=== PATIENT | female | born 1940 | race Caucasian/White ===

== ENCOUNTER 2017-01-04 08:31 | Day surgery (SDC) | payer MEDICARE, MEDICAID ==
[2016-12-31 12:55] VITALS: BMI 20.5
[2017-01-04 09:36] VITALS: RESP 18; TEMP 97.1
[2017-01-04 10:05] LABS: INR 1.2
[2017-01-04] MEDS ORDERED: Midazolam 2 MG/2 ML VIAL ONE (11:25)
--- NOTE | 2017-01-04 11:44 | CP.SDSHP ---
Same Day Surgery H & P - History Proposed Procedure: US guided liver biopsy Pre-Op Diagnosis: Cirrhosis - Allergies Allergies: Allergies No Known Allergies Allergy (Verified 09/11/16 18:23) - Physical Exam Vital Signs: Vital Signs 01/04/17 08:48 Temperature 97.1 F L Pulse Rate 66 Respiratory 18 Rate Blood Pressure 130/78 O2 Sat by Pulse 96 Oximetry Mental Status: Alert & Oriented x3 Neuro: WNL Heart: WNL Lungs: WNL GI: WNL - Impression Impression: Pt with possible cirrhosis referred for liver biopsy. Informed consent obtained. Plan US guided liver biopsy. Pt. 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
[2017-01-04] MEDS ORDERED: Absorbable Gelatin Sponge Size 12-7 ONE (11:52)
[2017-01-04] MEDS ORDERED: Oxycodone/Acetaminophen 5/325 mg Tab PO PRN (11:57)
--- NOTE | 2017-01-04 11:57 | PCM.SURG1 ---
Surgeon's Initial Post Op Note - Surgeon's Notes Surgeon: Victor Hugo Santana [employer] Worker: None Type of Anesthesia: IV Sedation, Local Pre-Operative Diagnosis: Cryptogenic cirrhosis Operative Findings: US showed an unremarkable liver. Post-Operative Diagnosis: Cryptogenic cirrhosis Operation Performed: US guided left liver biopsy. Three 18-g core specimen obtained. Specimen/Specimens Removed: 18 g core x 3 Estimated Blood Loss: EBL {In ML}: 2 Blood Products Given: N/A Drains Used: No Drains Post-Op Condition: Fair Date of Surgery/Procedure: 01/04/17 Time of Surgery/Procedure: 11:55
[2017-01-04 13:20] VITALS: O2SAT 98
[2017-01-04 13:23] VITALS: BP 121/69; PULSE 69
--- NOTE | 2017-01-05 10:31 | US ---
PROCEDURE: Date of procedure: 01/04/2017 Procedure: 1. Ultrasound-guided core liver biopsy, CPT 26097 2. Ultrasound guidance for biopsy, [address] Medications: The patient is sedated by the anesthesiologist. HISTORY: Abnormal LFTs TECHNIQUE: Following informed consent and procedure time-out, the patient was placed supine on bed and limited ultrasound showed a normal appearing left hepatic lobe. After patient abdomen was prepped and draped in the usual sterile fashion and the skin was anesthetized with 2% lidocaine, an 18 gauge core needle was advanced percutaneously under direct ultrasound guidance into the left hepatic lobe. Upon confirmation of needle position, three 18 gauge core specimens were obtained and sent for routine pathology. The biopsy to tract was then embolized with Gelfoam. A post biopsy ultrasound showed no hematoma. A dressing was applied. IMPRESSION: Ultrasound-guided core biopsy left hepatic lobe. There were no immediate complications.
== END 2017-01-04 13:30 | disposition home or self-care (01) ==
LOC: C.SPRAD 08:31
PROVIDERS: ATTEND Radiology Vascular & Interventional Radiology
DX: K74.69 Other cirrhosis of liver (principal)
CPT/HCPCS: 10022; 36415; 76942; 82948; 85610; 85730; 88307; 88313; 88342; J2250; J3010

== ENCOUNTER 2018-04-24 06:56 | Day surgery (SDC) | payer MEDICARE, MEDICAID ==
[2018-04-21 10:07] VITALS: BMI 19.5
--- NOTE | 2018-04-24 09:13 | CP.SDSHP ---
Same Day Surgery H & P - History Proposed Procedure: EGD Pre-Op Diagnosis: Dyspepsia, anemia - Previous Medical/Surgical History Cardiac: Hypertension Neuro: Seizure Disorder Misc: Other Comments: Cirrhosis, steatohepatitis Previous Surgical History: Jose Cruz, left leg; right shoulder replacement - Allergies Allergies: Allergies No Known Allergies Allergy (Verified 09/11/16 18:23) - Current Medications Current Medications: See reconciliation sheet - Physical Exam General Appearance: WD WN female in NAD Vital Signs: Vital Signs 04/24/18 07:30 Temperature 97.2 F L Pulse Rate 66 Respiratory 17 Rate Blood Pressure 156/68 H O2 Sat by Pulse 99 Oximetry Mental Status: Alert & Oriented x3 Neuro: WNL Heart: WNL Lungs: WNL GI: WNL - {Optional Preform as Required} Abdomen: WNL - Impression Impression: Dyspepsia, anemia Pt. Evaluated Today:Candidate for Anesthesia & Procedure: Yes - Date & Time Date: 04/24/18 Time: 09:13 Short Stay Discharge - Short Stay Discharge Admitting Diagnosis/Reason for Visit: ANEMIA Disposition: HOME/ ROUTINE
[2018-04-24 09:47] VITALS: TEMP 97.9
[2018-04-24 10:20] VITALS: O2SAT 100
[2018-04-24 10:21] VITALS: BP 123/88; PULSE 65; RESP 12
== END 2018-04-24 10:28 | disposition home or self-care (01) ==
LOC: C.ENDO 06:56
PROVIDERS: ATTEND Internal Medicine Gastroenterology
DX: I85.00 Esophageal varices without bleeding (principal); D50.9 Iron deficiency anemia, unspecified; K44.9 Diaphragmatic hernia without obstruction or gangrene; I10 Essential (primary) hypertension; Z96.611 Presence of right artificial shoulder joint; K29.70 Gastritis, unspecified, without bleeding